=== PATIENT | male | born 1995 | race Caucasian/White ===

== ENCOUNTER 2017-09-26 12:24 | Emergency (ER) | payer SELFPAY ==
[~2017-09-26] VITALS: Ht 167.6 cm; Wt 81.7 kg
[2017-09-26 12:55] LABS: Calcium, Ionized (POC) 1.12 mmol/L (1.10-1.46); Chloride (POC) 104 mmol/L (98-108); Creatinine (POC) 0.9 mg/dL (0.8-1.3); Glucose (ISTAT POC) 98 mg/dL (70-99); Hemoglobin (POC) 14.6 g/dL (13.5-17.5); Potassium (POC) 3.8 mmol/L (3.5-5.5); Sodium (POC) 141 mmol/L (135-148); Total CO2 (POC) 21 mmol/L (21-32)
[2017-09-26] MEDS ORDERED: SUMA25 PO (13:49)
== END 2017-09-26 14:15 | disposition home or self-care (01) ==
LOC: ER 12:24
PROVIDERS: Emergency Medicine
DX: R42 Dizziness and giddiness (principal); Z87.891 Personal history of nicotine dependence; Z79.899 Other long term (current) drug therapy
CPT/HCPCS: 80047; 85014; 93005; 93010; 99283; J7120

== ENCOUNTER 2018-10-21 12:12 | Emergency (ER) | payer OTHER ==
[~2018-10-21] VITALS: Ht 170.2 cm; Wt 88.5 kg
[~2018-10-21 12:12] MED LIST: SUMA25 PO
[2018-10-21] MEDS ORDERED: Norco 5-325 Ta1 EACH PO (13:51)
[2018-10-21] MEDS ORDERED: IBUP600 PO (13:51)
== END 2018-10-21 16:05 | disposition home or self-care (01) ==
LOC: ER 12:12
DX: S52.571A Other intraarticular fracture of lower end of right radius, initial encounter for closed fracture (principal); S52.611A Displaced fracture of right ulna styloid process, initial encounter for closed fracture; S81.811A Laceration without foreign body, right lower leg, initial encounter; S39.91XA Unspecified injury of abdomen, initial encounter; S00.81XA Abrasion of other part of head, initial encounter; Z87.891 Personal history of nicotine dependence; X58.XXXA Exposure to other specified factors, initial encounter
CPT/HCPCS: 12001; 70450; 71260; 72125; 73110; 73590; 74177; 96374-59; 96375-59; 99284-25; J2405; J3010; Q9967

== ENCOUNTER 2018-10-29 09:48 | Day surgery (SDC) | payer OTHER ==
[~2018-10-29] VITALS: Ht 167.6 cm; Wt 86.9 kg
[~2018-10-29 09:48] MED LIST changes: +IBUP600 PO; +Norco 5-325 Ta1 EACH PO
--- NOTE | 2018-10-29 11:23 | NUR ---
History, Chart, Medications and Allergies reviewed before start of procedure. Patient confirms NPO status and agrees with scheduled surgery. Lungs clear T/O to Auscultation. Patient States Post-Procedure ride home has been arranged. Pre-Op teaching done. Pt verbalizes understanding. Patient reports completing Chlorhexadine shower X2 prior to admission to hospital. NO JEWELRY ON AT ADMISSION TO [facility].
--- NOTE | 2018-10-29 11:40 | NUR ---
ONLY RIGHT LEG SCDs IN PLACE DUE TO PUNCTURE INJURY ON LLE. REPORT TO Cristal DUBOSE FOR BREAK.
--- NOTE | 2018-10-29 15:17 | NUR ---
CIRCULATION TO R HAND INTACT. PT ABLE TO MOVE FINGERS, CAUSES PAIN, PROVIDED FOOD, FLUIDS AND PAIN MEDS. MOTHER AT BEDSIDE.
--- NOTE | 2018-10-29 16:19 | NUR ---
PT PAIN DOWN TO A TOLERABLE LEVEL PRIOR TO DISCHARGE. Patient up to Ambulate independently. Gait steady. Discharge instructions reviewed with patient. Patient verbalizes understanding. Copy given to patient to take home. Patient States Post-Procedure ride home has been arranged. Discharged via wheelchair to private car for ride home. PT BELONGIGNS RETURNED.
== END 2018-10-29 23:16 | disposition home or self-care (01) ==
LOC: ORSCMMR 09:48 → ORD 11:15 → ORSCMMR 23:16
PROVIDERS: Orthopaedic Surgery
PROC: 0PSH04Z Reposition Right Radius with Internal Fixation Device, Open Approach (ICD-10-PCS; principal; 2018-10-29 11:40)
DX: S52.571A Other intraarticular fracture of lower end of right radius, initial encounter for closed fracture (principal)
CPT/HCPCS: 73100; C1713; J0690; J1100; J1885; J2250; J2405; J2704; J2710; J3010; J7120

== ENCOUNTER 2018-12-13 06:24 | Day surgery (SDC) | payer OTHER ==
[~2018-12-13] VITALS: Ht 170.2 cm; Wt 92.0 kg
--- NOTE | 2018-12-13 08:40 | NUR ---
12/13/18 0840 Margo Mckinnon O2 REMOVED AT 0838
== END 2018-12-13 09:55 | disposition home or self-care (01) ==
LOC: ORSCSDS 06:24
PROVIDERS: Orthopaedic Surgery
PROC: 0XP Anatomical Regions, Upper Extremities, Removal (ICD-10-PCS; principal; 2018-12-13 07:30)
DX: S52.561 Barton's fracture of right radius (principal); F17.210 Nicotine dependence, cigarettes, uncomplicated
CPT/HCPCS: A9270-GY; J0690; J2250; J2405; J2704; J3010; J7120

== ENCOUNTER → 2019-01-21 | Outpatient (CLI) | payer OTHER ==
[2019-01-24 15:30] LABS: Adenovirus F 40/41 Not Detected (NOT DETECT); Astrovirus Not Detected (NOT DETECT); Campylobacter Sp Not Detected (NOT DETECT); Cryptosporidium Not Detected (NOT DETECT); Cyclospora Cayetanensis Not Detected (NOT DETECT); E. Coli O157 Not Detected (NOT DETECT); Entamoeba Histolytica Not Detected (NOT DETECT); Enteroaggregative E. coli-EAEC Not Detected (NOT DETECT); Enteropathogenic E. coli-EPEC Not Detected (NOT DETECT); Enterotoxigenic E. coli-ETEC Not Detected (NOT DETECT); Giardia Lamblia Not Detected (NOT DETECT); Norovirus GI/GII Not Detected (NOT DETECT); Plesiomonas Shigelloides Not Detected (NOT DETECT); Rotavirus A Not Detected (NOT DETECT); Salmonella Sp Not Detected (NOT DETECT); Sapovirus Not Detected (NOT DETECT); Shiga Toxin-prod E. coli-STEC Not Detected (NOT DETECT); Shigella/Enteroin E. coli-EIEC Not Detected (NOT DETECT); Vibrio Cholerae Not Detected (NOT DETECT); Vibrio Sp Not Detected (NOT DETECT); Yersinia Enterocolitica Not Detected (NOT DETECT)
== END ==
LOC: LAB 13:30 → LAB SHORT 13:30
PROVIDERS: Nurse Practitioner Family
DX: K52.9 Noninfective gastroenteritis and colitis, unspecified (principal)
CPT/HCPCS: 0097U

== ENCOUNTER 2020-02-13 11:37 | Emergency (ER) | payer OTHER ==
[~2020-02-13] VITALS: Ht 167.6 cm; Wt 99.8 kg
[2020-02-13 12:41] LABS: BASOPHILS ABSOLUTE AUTO 0.04 K/mm3 (0.00-0.23); BASOPHILS PERCENT AUTO 0 % (0-2); EOSINOPHILS ABSOLUTE AUTO 0.07 K/mm3 (0.00-0.68); EOSINOPHILS PERCENT AUTO 1 % (0-6); Hematocrit 44.6 % (37.0-53.0); Hemoglobin 14.3 g/dL (13.5-17.5); IMMATURE GRAN ABSOLUTE AUTO 0.02 K/mm3 (0.00-0.10); IMMATURE GRAN PERCENT AUTO 0 % (0-1); LYMPHOCYTES ABSOLUTE AUTO 1.77 K/mm3 (0.84-5.20); LYMPHOCYTES PERCENT AUTO 17 % (21-46); MONOCYTES ABSOLUTE AUTO 0.53 K/mm3 (0.16-1.47); MONOCYTES PERCENT AUTO 5 % (4-13); Mean Corpuscular HGB 29.4 pg (26.0-34.0); Mean Corpuscular HGB Conc 32.1 g/dL (31.5-36.5); Mean Corpuscular Volume 92 fL (80-100); NEUTROPHILS ABSOLUTE AUTO 7.79 K/mm3 (1.96-9.15); NEUTROPHILS PERCENT AUTO 76 % (41-73); NRBC ABSOLUTE 0.02 K/mm3 (0.00-0.02); NRBC Auto 0.2 /100 WBC (0.0-0.2); Platelet Count 257 K/mm3 (150-400); RDW Coefficient Variation 13.4 % (11.7-14.2); RDW Standard Deviation 45.4 fL (35.1-46.3); Red Blood Cell Count 4.87 M/mm3 (4.30-5.90); White Blood Cell Count 10.22 K/mm3 (4.00-11.30)
[2020-02-13 12:59] LABS: Alanine Aminotransfer (ALT/SGP 27 U/L (12-78); Albumin, Blood 4.1 g/dL (3.4-5.0); Albumin/Globulin Ratio 1.1 (0.8-1.8); Alk Phos 63 U/L (50-136); Anion Gap 3 mmol/L (6-16); Aspartate Aminotrans (AST/SGOT 19 U/L (12-37); Bilirubin, Total 0.4 mg/dL (0.1-1.0); Blood Urea Nitrogen 15 mg/dL (8-24); Bun/Creatinine Ratio 19.6 (12.0-20.0); CO2, Blood 26 mmol/L (21-32); Calcium, Blood 9.1 mg/dL (8.5-10.1); Chloride, Blood 111 mmol/L (98-108); Creatinine, Blood 0.76 mg/dL (0.60-1.20); Globulin, Blood 3.8 g/dL (2.2-4.0); Glomerular Filtration Rate >60 (60-); Glucose, Blood 103 mg/dL (70-99); Potassium, Blood 4.3 mmol/L (3.5-5.5); Sodium, Blood 140 mmol/L (136-145); Total Protein, Blood 7.9 g/dL (6.4-8.2)
[2020-02-13 13:17] LABS: Source, Urine Clean Catch
[2020-02-13 13:21] LABS: Bilirubin, Urine Neg (Neg); Blood, Urine 1+ (Neg); Glucose Qualitative, Urine Neg (Neg); Ketones, Urine Neg (Neg); Leukocyte Esterase, Urine Neg (Neg); Nitrite, Urine Neg (Neg); Protein, Urine Neg (Neg); Urobilinogen, Urine NORM (Normal)
[2020-02-13 13:50] LABS: Appearance, Urine Clear (Clear); Bacteria Not Seen /hpf; Color, Urine Yellow (P-Yellow); Red Blood Cells, Urine 0-2 /hpf (0-2); Squamous Epithelial Cells Not Seen /hpf (Few); White Blood Cells, Urine 0-2 /hpf (0-5)
== END 2020-02-13 15:14 | disposition home or self-care (01) ==
LOC: ER 11:37
PROVIDERS: Emergency Medicine
DX: R10.13 Epigastric pain (principal); R19.7 Diarrhea, unspecified; Z87.891 Personal history of nicotine dependence
CPT/HCPCS: 36415; 80053; 81001; 83690; 85025; 99284

== ENCOUNTER 2020-06-10 12:15 | Day surgery (SDC) | payer OTHER ==
[~2020-06-10] VITALS: Ht 167.6 cm; Wt 100.7 kg
--- NOTE | 2020-06-10 13:32 | NUR ---
06/10/20 1332 Alannah Jaime CALL LIGHT WITHIN REACH
== END 2020-06-10 15:45 | disposition home or self-care (01) ==
LOC: ORSCSDS 12:15
PROVIDERS: Student in an Organized Health Care Education/Training Program
PROC: 0DB78ZX Excision of Stomach, Pylorus, Via Natural or Artificial Opening Endoscopic, Diagnostic (ICD-10-PCS; principal; 2020-06-10 13:30)
PROC: 0DB48ZX Excision of Esophagogastric Junction, Via Natural or Artificial Opening Endoscopic, Diagnostic (ICD-10-PCS; principal; 2020-06-10 13:30)
PROC: 0DBG8ZX Excision of Left Large Intestine, Via Natural or Artificial Opening Endoscopic, Diagnostic (ICD-10-PCS; principal; 2020-06-10 13:30)
PROC: 0DBF8ZX Excision of Right Large Intestine, Via Natural or Artificial Opening Endoscopic, Diagnostic (ICD-10-PCS; principal; 2020-06-10 13:30)
PROC: 0DB98ZX Excision of Duodenum, Via Natural or Artificial Opening Endoscopic, Diagnostic (ICD-10-PCS; principal; 2020-06-10 13:30)
DX: R10.9 Unspecified abdominal pain (principal); K92.1 Melena; R19.7 Diarrhea, unspecified; K22.8 Other specified diseases of esophagus; K31.7 Polyp of stomach and duodenum; Z79.899 Other long term (current) drug therapy; F17.210 Nicotine dependence, cigarettes, uncomplicated
CPT/HCPCS: 88305; 88342; J2250; J2704; J7120

== ENCOUNTER → 2020-12-08 | Outpatient (CLI) | payer OTHER | END | disposition home or self-care (01) | LOC: LAB SHORT 13:52 → LAB 13:52 | DX: L08.9 Local infection of the skin and subcutaneous tissue, unspecified (principal) | CPT/HCPCS: 87070; 87075; 87205 ==

== ENCOUNTER 2023-02-23 22:55 | Emergency (ER) | payer OTHER ==
[~2023-02-23] VITALS: Ht 170.2 cm; Wt 99.8 kg
[2023-02-24 02:35] VITALS: BP 115/59
== END 2023-02-24 02:33 | disposition home or self-care (01) ==
LOC: ER 22:55
DX: R07.81 Pleurodynia (principal); G43.909 Migraine, unspecified, not intractable, without status migrainosus; F17.200 Nicotine dependence, unspecified, uncomplicated
CPT/HCPCS: 71101; 96372; 99283-25; A9270; J1885